=== PATIENT | female | born 1960 | race Caucasian/White ===

== ENCOUNTER 2020-10-02 14:09 | Emergency (ER) | payer OTHER ==
[~2020-10-02] VITALS: Ht 170.2 cm; Wt 61.2 kg
[2020-10-02 14:13] VITALS: BP 104/73
[2020-10-02] MEDS ORDERED: DOXYCYCLINE 10100 MG PO (17:10)
[2020-10-02] MEDS ORDERED: HYDROCODON-ACE1 EAC7 PO ×2 (17:10→17:13)
== END 2020-10-02 19:36 | disposition home or self-care (01) ==
LOC: ER 14:09
DX: L02.511 Cutaneous abscess of right hand (principal); F17.210 Nicotine dependence, cigarettes, uncomplicated